=== PATIENT | male | born 2000 | race Two or more races ===

== ENCOUNTER 2021-03-16 00:58 | Emergency (ER) | payer OTHER ==
[2021-03-16] MEDS ORDERED: Alum Hydrox/Mag Hydrox/Simeth 15 ML, Lidocaine 2% 5 ML PO ONE ×2 (01:16)
--- NOTE | 2021-03-16 01:25 | EDM.PDOC ---
ED HPI GENERAL MEDICAL PROBLEM - General Chief Complaint: Abdominal Pain Stated Complaint: sharp pains in lower chest Time Seen by Provider: 03/16/21 01:03 Source of Information: Reports: Patient - History of Present Illness INITIAL COMMENTS - FREE TEXT/NARRATIVE: 20-year-old male presents complaining of epigastric pain starting couple hours prior to arrival. Radiating to the back in the middle.patient was at work. Patient had a little bit of loose stool over the last couple days (4 times) but otherwise no vomiting. No fevers. No exacerbating or alleviating factors. Patient does not use NSAIDs or drink alcohol. No recent antibiotics or travel or eating undercooked foods or exposed to anybody with diarrhea. Moderate symptoms without exacerbating or alleviating factors Right Upper Abdomen Pain Score (Numeric/FACES): 7 - Related Data Allergies Allergy/AdvReac Type Severity Reaction Status Date / Time No Known Allergies Allergy Verified 03/16/21 01:15 Home Meds: Home Meds . [No Known Home Meds] 10/15/18 [History] Past Medical History - Past Health History Medical/Surgical History: Denies Medical/Surgical History Social & Family History - Family History Family Medical History: No Pertinent Family History - Tobacco Use Tobacco Use Status *Q: Never Tobacco User Second Hand Smoke Exposure: No - Caffeine Use Caffeine Use: Reports: None - Recreational Drug Use Recreational Drug Use: No ED ROS GENERAL - Review of Systems Review Of Systems: See Below Constitutional: Denies: Fever Respiratory: Denies: Shortness of Breath, Cough Cardiovascular: Denies: Chest Pain GI/Abdominal: Reports: Abdominal Pain, Diarrhea. Denies: Vomiting : Denies: Dysuria, Flank Pain Musculoskeletal: Reports: No Symptoms, Arm Pain, Other Skin: Denies: Rash Neurological: Reports: No Symptoms Psychiatric: Reports: Anxiety ED EXAM, GENERAL - Physical Exam Exam: See Below Free Text/Narrative:: CONSTITUTIONAL: well appearing in no acute distress SKIN: dry, and intact without rash HENT: Normocephalic, atraumatic, NECK: normal range of motion PULMONARY: normal chest rise and fall, no respiratory distress or stridor NEUROLOGIC: normal speech, moves all extremities, grossly non-focal MUSCULOSKELETAL: no gross deformities, atraumatic PSYCHIATRIC: normal mood and affect GI: Very mild epigastric tenderness. No rebound or rigidity Course - Vital Signs Text/Narrative:: Differential diagnosis: Gastritis, GERD, kidney stone, bowel obstruction, gastroenteritis, other Patient presents as outlined above. Patient found to have an elevated creatinine at 1.4. Patient did have some minor loose stool thus a liter of IV fluids was given. CT scan looking for potential renal obstruction and/or kidney stone done that shows evidence of small bowel malrotation. I spoke to the radiologist and there is no evidence of obstruction at this time. Patient is well-appearing and nontoxic. He has a soft abdomen. There is no fever or leukocytosis and the patient CO2 is above 27 is not acidotic. I spoke to surgery, Dr. Ellington, who concurs with outpatient management and he will follow up with the patient in the clinic for reevaluation and guide his most appropriate treatment decisions whether or not that is here or further referred. She otherwise given instruction for full liquid diet with strict return precautions. Last Recorded V/S: Last Vital Signs Temp 36.6 C 03/16/21 01:08 Pulse 71 03/16/21 03:56 Resp 14 03/16/21 03:56 BP 122/68 03/16/21 03:56 Pulse Ox 100 03/16/21 03:56 - Orders/Labs/Meds Orders: Active Orders 24 hr Category Date Time Status Lactated Ringers [Ringers, Lactated] 1,000 ml Med 03/16/21 03:51 Active IV .BOLUS Medication Orders Lactated Ringer's (Ringers, Lactated) 1,000 mls @ 999 mls/hr IV .BOLUS ONE Stop: 03/16/21 04:51 Last Admin: 03/16/21 03:55 Dose: 999 mls/hr Documented by: PERLA Labs: Laboratory Tests 03/16/21 03/16/21 Range/Units 01:20 01:20 WBC 8.07 (4.0-11.0) K/uL RBC 5.46 (4.50-5.90) M/uL Hgb 15.4 (13.0-17.0) g/dL Hct 43.8 (38.0-50.0) % MCV 80.2 (80.0-98.0) fL MCH 28.2 (27.0-32.0) pg MCHC 35.2 (31.0-37.0) g/dL RDW Std Deviation 37.1 (28.0-62.0) fl RDW Coeff of Dandre 13 (11.0-15.0) % Plt Count 333 (150-400) K/uL MPV 9.50 (7.40-12.00) fL Neut % (Auto) 57.6 (48.0-80.0) % Lymph % (Auto) 34.7 (16.0-40.0) % [place] % (Auto) 6.8 (0.0-15.0) % Eos % (Auto) 0.7 (0.0-7.0) % Baso % (Auto) 0.2 (0.0-1.5) % Neut # (Auto) 4.6 (1.4-5.7) K/uL Lymph # (Auto) 2.8 H (0.6-2.4) K/uL T[place] # (Auto) 0.6 (0.0-0.8) K/uL Eos # (Auto) 0.1 (0.0-0.7) K/uL Baso # (Auto) 0.0 (0.0-0.1) K/uL Nucleated RBC % 0.0 /100WBC Nucleated RBCs # 0 K/uL Sodium 141 (136-148) mmol/L Potassium 3.9 (3.5-5.1) mmol/L Chloride 104 (98-107) mmol/L Carbon Dioxide 27.7 (21.0-32.0) mmol/L BUN 10 (7.0-18.0) mg/dL Creatinine 1.4 H (0.8-1.3) mg/dL Est Cr Clr Drug Dosing 81.67 mL/min Estimated GFR (MDRD) > 60.0 ml/min Glucose 112 H (74-106) mg/dL Calcium 9.7 (8.5-10.1) mg/dL Total Bilirubin 0.4 (0.2-1.0) mg/dL AST 38 H (15-37) IU/L ALT 54 (14-63) IU/L Alkaline Phosphatase 100 (46-116) U/L Total Protein 7.9 (6.4-8.2) g/dL Albumin 4.3 (3.4-5.0) g/dL Globulin 3.6 (2.6-4.0) g/dL Albumin/Globulin Ratio 1.2 (0.9-1.6) Lipase 72 L (73-393) U/L Meds: Medications Generic Name Dose Route Start Last Admin Trade Name Freq PRN Reason Stop Dose Admin Lactated Ringer's 1,000 mls @ 999 mls/hr 03/16/21 03:51 03/16/21 03:55 Ringers, Lactated IV 03/16/21 04:51 999 mls/hr .BOLUS ONE Administration Discontinued Medications Generic Name Dose Route Start Last Admin Trade Name Freq PRN Reason Stop Dose Admin Al Hydroxide/Mg Hydroxide 15 0 ml 03/16/21 01:16 03/16/21 01:25 ml/ Lidocaine HCl 5 ml PO 03/16/21 01:17 1 each ONETIME ONE Administration Departure - Departure Time of Disposition: 04:11 Disposition: Home, Self-Care 01 Clinical Impression: Abdominal pain, Malrotation of intestine - Discharge Information Referrals: PCP,None [Primary Care Provider] - Forms: ED Department Discharge Additional Instructions: Return for increasing abdominal pain, fever, significant vomiting or any change or worsening condition. Drink a full liquid diet and follow-up with the surgeon, Dr. Henry Ellington early next week. We have provided his contact information below. Call the office on Wednesday and tell them you are seen in the emergency department in order to make an appointment. Dr. Henry Ellington [facility] - General Surgery [address], [address] [place] [address] The following information is given to patients seen in the emergency department who are being discharged to home. This information is to outline your options for follow-up care. We provide all patients seen in our emergency department with a follow-up referral. The need for follow-up, as well as the timing and circumstances, are variable depending upon the specifics of your emergency department visit. If you don't have a primary care physician on staff, we will provide you with a referral. We always advise you to contact your personal physician following an emergency department visit to inform them of the circumstance of the visit and for follow-up with them and/or the need for any referrals to a consulting specialist. The emergency department will also refer you to a specialist when appropriate. This referral assures that you have the opportunity for follow-up care with a specialist. All of these measure are taken in an effort to provide you with optimal care, which includes your follow-up. Primary care clinics in the area: [facility] - Primary Care [address] [place] [id number] [facility] [address] [place] [id number] Under all circumstances we always encourage you to contact your private physician who remains a resource for coordinating your care. When calling for follow-up care, please make the office aware that this follow-up is from your recent emergency room visit. If for any reason you are refused follow-up, please contact the [facility] Emergency Department at and asked to speak to the emergency department charge nurse. Sepsis Event Note (ED) - Focused Exam Vital Signs: Vital Signs Temp Pulse Resp BP Pulse Ox 03/16/21 03:56 71 14 122/68 100 03/16/21 01:08 36.6 C 87 14 135/76 95 - My Orders Last 24 Hours: My Active Orders 03/16/21 03:51 Lactated Ringers [Ringers, Lactated] 1,000 ml IV .BOLUS - Assessment/Plan Last 24 Hours: My Active Orders 03/16/21 03:51 Lactated Ringers [Ringers, Lactated] 1,000 ml IV .BOLUS
[2021-03-16 01:48] LABS: BLOOD UREA NITROGEN,BUN 10 mg/dL (7.0-18.0); CARBON DIOXIDE,CO2 27.7 mmol/L (21.0-32.0); CHLORIDE,CL 104 mmol/L (98-107); GLUCOSE RANDOM 112 mg/dL (74-106); LIPASE 72 U/L (73-393); POTASSIUM,K 3.9 mmol/L (3.5-5.1); SODIUM,NA 141 mmol/L (136-148)
--- NOTE | 2021-03-16 03:09 | CT ---
Clinical INDICATION: Creatinine elevation. Abdominal pain. Back pain. TECHNIQUE: Axial noncontrast CT cuts were performed from above diaphragm to the below the ischial tuberosities. Findings : There are no renal, ureteral bladder calculi. There is no hydronephrosis. The prostate gland seminal vesicles appear normal. The liver, spleen, pancreas adrenal glands appear normal. There is no free intraperitoneal air or fluid. The a duodenum does not cross the midline. The small bowel is located within the right side of the abdomen. The cecum is located centrally within the pelvis. The appendix is not inflamed (for example see image 39 of series 203). There are no nodules or masses at the lung bases. IMPRESSION: 1. Negative for urinary tract calculi are with no cause for pain identified. 2. Small bowel malrotation. Please note that all CT scans at this facility use dose modulation, iterative reconstruction, and/or weight-based dosing when appropriate to reduce radiation dose to as low as reasonably achievable. Dictated by Marcus Suarez MD @ 03/16/2021 3:07:51 AM (Electronically Signed)
[2021-03-16] MEDS ORDERED: Lactated Ringers 1,000 ML IV ONE (03:51)
== END 2021-03-16 04:53 | disposition home or self-care (01) ==
LOC: MW.ED 00:58
DX: Q43.3 Congenital malformations of intestinal fixation (principal)
CPT/HCPCS: 36415; 74176; 80053; 83690; 85025; 99284; A9270; J7120; 99283

== ENCOUNTER 2021-04-04 06:25 | Day surgery (SDC) | payer MEDICAID, OTHER ==
[2021-04-04] MEDS ORDERED: Lactated Ringers 1,000 ML IV SCH ×2 (06:30→08:15)
--- NOTE | 2021-04-04 07:06 | PCM.PREANE ---
Preanesthetic Assessment - Procedure Proposed Procedure: EGD - Anesthesia/Transfusion/Family Hx Anesthesia History: Prior Anesthesia Without Reaction Family History of Anesthesia Reaction: No Transfusion History: No Prior Transfusion(s) - Review of Systems General: No Symptoms Pulmonary: No Symptoms Cardiovascular: No Symptoms (HTN when stressed, no meds) Gastrointestinal: No Symptoms (recent epigastric pain) Neurological: No Symptoms Other: Reports: None - Physical Assessment NPO Status Date: 04/03/21 NPO Status Time: 14:00 Vital Signs: Last Vital Signs Temp 97.5 F 04/04/21 06:35 Pulse 93 04/04/21 06:35 Resp 16 04/04/21 06:35 BP 134/63 04/04/21 06:35 Pulse Ox 97 04/04/21 06:35 Height: 5 ft 8 in Weight: 84.368 kg ASA Class: 2 Mental Status: Alert & Oriented x3 Airway Class: Mallampati = 2 Dentition: Reports: Normal Dentition Thyro-Mental Finger Breadths: 3 Mouth Opening Finger Breadths: 3 ROM/Head Extension: Full Lungs: Clear to Auscultation, Normal Respiratory Effort Cardiovascular: Regular Rate, Regular Rhythm - Allergies Allergies/Adverse Reactions: Allergies Allergy/AdvReac Type Severity Reaction Status Date / Time No Known Allergies Allergy Verified 03/31/21 09:51 - Acknowledgements Anesthesia Type Planned: General Anesthesia Pt an Appropriate Candidate for the Planned Anesthesia: Yes Alternatives and Risks of Anesthesia Discussed w Pt/Guardian: Yes Pt/Guardian Understands and Agrees with Anesthesia Plan: Yes PreAnesthesia Questionnaire - Past Health History Medical/Surgical History: Denies Medical/Surgical History HEENT History: Reports: Other (See Below) Other HEENT History: wears glasses Cardiovascular History: Reports: Other (See Below) Other Cardiovascular History: "slight murmur" Gastrointestinal History: Reports: Other (See Below) Other Gastrointestinal History: intermittent epigastric pain Psychiatric History: Reports: Anxiety - Past Surgical History Head Surgeries/Procedures: Reports: None HEENT Surgical History: Reports: Tonsillectomy - SUBSTANCE USE Tobacco Use Status *Q: Never Tobacco User - HOME MEDS Home Medications: Home Meds Omeprazole Magnesium [Prilosec Otc] 1 tab PO ASDIRECTED PRN 03/31/21 [History] - CURRENT (IN HOUSE) MEDS Current Meds: Current Medications Lactated Ringer's (Ringers, Lactated) 1,000 mls @ 125 mls/hr IV [facility]RECTED [facility] Last Admin: 04/04/21 06:43 Dose: 125 mls/hr Documented by:
[2021-04-04] MEDS ORDERED: Propofol 200 MG/20 ML SDV ONE ×2 (07:34→08:01)
[2021-04-04] MEDS ORDERED: fentaNYL 100 MCG/2 ML SDV ONE (07:34)
--- NOTE | 2021-04-04 08:13 | PCM.OPNOTE ---
- General Post-Op/Procedure Note Date of Surgery/Procedure: 04/04/21 Operative Procedure(s): Esophagogastroduodenoscopy with duodenal and gastric biopsies Pre Op Diagnosis: Epigastric pain. Hematemesis. History of malrotation. Post-Op Diagnosis: Mild chronic gastritis without ulceration. Anesthesia Technique: MAC (ASA II) Primary Surgeon: Henry Ellington Applications Support Analyst: Bernard Cobian Condition: Good Free Text/Narrative:: DICTATION [id number] CPT CODE 53913
--- NOTE | 2021-04-04 08:18 | PCM.POSTAN ---
POST ANESTHESIA ASSESSMENT - MENTAL STATUS Mental Status: Alert, Oriented - VITAL SIGNS Vital Signs: Last Vital Signs Temp 97.7 F 04/04/21 08:11 Pulse 77 04/04/21 08:16 Resp 17 04/04/21 08:16 BP 85/30 L 04/04/21 08:16 Pulse Ox 98 04/04/21 08:16 - RESPIRATORY Respiratory Status: Respiratory Rate WNL, Airway Patent, O2 Saturation Stable - CARDIOVASCULAR CV Status: Pulse Rate WNL, Blood Pressure Stable - GASTROINTESTINAL GI Status: No Symptoms - PAIN Pain Score: 0 - POST OP HYDRATION Hydration Status: Adequate & Stable
--- NOTE | 2021-04-04 08:21 | PCM48HPAN ---
Post Anesthesia Note - EVALUATION WITHIN 48HRS OF ANESTHETIC Vital Signs in Normal Range: Yes Patient Participated in Evaluation: Yes Respiratory Function Stable: Yes Airway Patent: Yes Cardiovascular Function Stable: Yes Hydration Status Stable: Yes Pain Control Satisfactory: Yes Nausea and Vomiting Control Satisfactory: Yes Mental Status Recovered: Yes Vital Signs: Last Vital Signs Temp 97.7 F 04/04/21 08:11 Pulse 77 04/04/21 08:16 Resp 17 04/04/21 08:16 BP 85/30 L 04/04/21 08:16 Pulse Ox 98 04/04/21 08:16 - COMMENTS/OBSERVATIONS Free Text/Narrative:: Pt doing well post-op. VSS. No apparent anesthetic complications. Dr. Bradford Pineda
--- NOTE | 2021-04-04 09:50 | OR ---
SURGEON: Henry Ellington M.D. DATE OF PROCEDURE: 04/04/2021 OPERATION PERFORMED: Esophagogastroduodenoscopy with biopsy. PRIMARY SURGEON: Henry Ellington M.D. STIPPLER: Gill Box Tender: RAN Hinson student. ANESTHESIA: MAC. ASA CLASSIFICATION: II. PREOPERATIVE DIAGNOSES: Epigastric pain with hematemesis. POSTOPERATIVE DIAGNOSES: 1. Mild chronic gastritis without ulceration. 2. History of malrotation. DESCRIPTION OF PROCEDURE: The patient was taken to the endoscopy room and positioned on the endoscopy table in the supine position. Time-out was called for appropriate identification of the patient and procedure. Monitored anesthesia care was provided. The bite block was placed between the patient's teeth. The gastroscope was inserted through the bite block and advanced with minimal difficulty through the esophagus and stomach into the duodenum where examination was carried out in a retrograde fashion. Duodenum did show [id number] inflammatory changes and biopsies of this area were obtained. The gastroscope was then withdrawn to the stomach, where antral biopsies were obtained. The gastroscope was retroflexed to visualize the proximal stomach. No acute ulcerations were noted. Again, mild gastritis was noted. No hiatal hernia was identified. The gastroscope was then straightened and slowly withdrawn carefully visualizing the greater and lesser curvatures prior to aspirating the stomach. The GE junction was well defined and showed no acute inflammatory changes or ulcerations. The stomach did show good contractility. No mid or proximal esophageal ulcerations were noted. The vocal cords were visualized as the scope was withdrawn and noted to move symmetrically. The gastroscope was then removed with the patient having tolerated the procedure well. He was taken to recovery room in stable condition. YANI / SHEREE /[id number]
== END 2021-04-04 09:04 | disposition home or self-care (01) ==
LOC: MW.SDS 06:25
PROVIDERS: ATTEND Surgery
DX: K29.50 Unspecified chronic gastritis without bleeding (principal); K29.80 Duodenitis without bleeding; K92.0 Hematemesis
CPT/HCPCS: 43239; J2704; J3010; J7120; 00731; 88305; 88342

== ENCOUNTER 2023-05-10 22:35 | Emergency (ER) | payer MEDICAID, OTHER ==
[2023-05-10] MEDS ORDERED: Ketorolac 30 MG/ML SDV IVPUSH ONE (23:40)
[2023-05-10] MEDS ORDERED: Sodium Chloride 0.9% 1,000 ML IV ONE (23:44)
[2023-05-10] MEDS ORDERED: Ondansetron 4 MG/2 ML SDV IVPUSH ONE (23:48)
[2023-05-11 00:29] LABS: CORONAVIRUS COVID-19 NAA POSITIVE (NEGATIVE); INFLUENZA A NAA NEGATIVE (NEGATIVE); INFLUENZA B NAA NEGATIVE (NEGATIVE)
== END 2023-05-11 01:32 | disposition home or self-care (01) ==
LOC: MW.ED 22:35
DX: U07.1 COVID-19 (principal)
CPT/HCPCS: 0240U; 71046; 87651; 96361; 96374; 96375; 99284; J1885; J2405; J7030

== ENCOUNTER 2023-06-01 18:54 | Emergency (ER) | payer SELFPAY | END 2023-06-01 23:14 | disposition home or self-care (01) | LOC: MW.ED 18:54 | DX: S92.255A Nondisplaced fracture of navicular [scaphoid] of left foot, initial encounter for closed fracture (principal); S82.845A Nondisplaced bimalleolar fracture of left lower leg, initial encounter for closed fracture; X50.0XXA Overexertion from strenuous movement or load, initial encounter; Y93.44 Activity, trampolining | CPT/HCPCS: 29515; 73610-26-LT; 73610-LT; 73630-26-LT; 73630-LT; 99283 ==